=== PATIENT | male | born 1970 | race Caucasian/White ===

== ENCOUNTER 2017-06-19 13:46 | Emergency (ER) | payer BC, OTHER ==
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
[2017-06-19 15:55] VITALS: BP 136/91
== END 2017-06-19 15:55 | disposition home or self-care (01) ==
LOC: ER 13:46
DX: S33.5XXA Sprain of ligaments of lumbar spine, initial encounter (principal); S13.9XXA Sprain of joints and ligaments of unspecified parts of neck, initial encounter; S73.102A Unspecified sprain of left hip, initial encounter; M25.552 Pain in left hip; M79.1 Myalgia; M54.2 Cervicalgia; M54.5 Low back pain; M25.512 Pain in left shoulder; V87.7XXA Person injured in collision between other specified motor vehicles (traffic), initial encounter
CPT/HCPCS: 99284; 73502; 73030; 70450; 72125; 72131; L0120